=== PATIENT | male | born 1965 | race African-American/Black ===

== ENCOUNTER 2019-08-06 10:24 | Inpatient (IN) ==
[2019-08-06 10:38] VITALS: BMI 26.6
--- NOTE | 2019-08-06 11:09 | DR.EXTPAIN ---
HPI - Time seen Time seen: 11:09 - PCP Primary Care Physician: NFD - Complaint/Symptoms Chief Complaint Doctor Comments: Patient is complaining of RUQ and epigastric pain with diarrhea for the past two days getting progressively worst. States he has a cough and has been running a fever the other day but no fever today. States he do not have a local doctor and he has been taking NyQuil for the cough. He denies tobacco use but states he drinks about two [place] [address] every other day. He denies drug usage. He denies hematuria, claudine, nausea or vomiting. States his pain is 7 of 10. He denies any recent trauma. He denies chest pain or SOB. He denies sore throat or rash. Chief Complaint:: PATIENT STATES HE RECENTLY TRAVELED TO [place] AND IS NOW EXPERIENCING FEVER, DIARRHEA, AND HAS A SLIGHT COUGH. PATIENT STATES HE IS HAVING ABDOMINAL PAIN. Self Treatment fo Chief Complaint: NYQUIL - Nurses notes reviewed Nurses Notes Review: Yes - Source History Provided: Patient - Mode of arrival Mode of Arrival: Ambulatory - Timing Onset of Chief Complaint: 08/04/19 - Context History of: None - Associated signs and symptoms Associated Signs and Symptoms: Abdominal Pain PMH - PMH Past Medical History: No Past Surgical History: Yes Surgical History: Other Past Surgical History Comment: JAW SURGERY 20 YRS AGO - Family History History of Family Medical Conditions: No - Social History Does patient currently use any type of tobacco product: No Have you used tobacco products in the last 12 months: No Type of Tobacco Use: None Does any household member use tobacco: No Alcohol Use: Occasionally Do you use any recreational Drugs:: No Lives With: Family Lives Where: Home - Travel Risk Coronavirus risk:travel/contact w/high risk person: No Has patient experienced Coronavirus symptoms: Yes Coronavirus symptoms experienced: Fever, Coughing - infectious screening Have you traveled outside the country in the last 6 months?: No Isolation: Droplet ROS - Review of Systems Constitutional: No Symptoms Reported. negative: See HPI, Chills, Diaphoresis, Fever, Malaise, Weakness, Irritable, Fatigue, Loss of Appetite, Other Eyes: No Symptoms Reported ENTM: No Symptoms Reported. negative: See HPI, Ear Pain, Ear Discharge, Pulling on Ears, Hearing Loss, Nose Pain, Nose Discharge, Epistaxis, Nose Congestion, Mouth Pain, Mouth Swelling, Loose Teeth, Drooling, Throat Pain, Throat Swelling, Ear Foreign Body, Tooth/Dental Pain Respiratoy: No Symptoms Reported, Non-Productive Cough Cardiovascular: No Symptoms Reported. negative: See HPI, Chest Pain, Edema, Palpitations, Syncope, Cyanosis, Skin Mottling, Other Gastrointestinal/Abdominal: No Symptoms Reported, Abdominal Pain, Diarrhea. negative: See HPI, Constipation, Nausea, Vomiting, Food Intolerance, Other Genitourinary: No Symptoms Reported. negative: See HPI, Discharge, Dysuria, Frequency, Hematuria, Pain, Bleeding, Other Neurological: No Symptoms Reported Musculoskeletal: No Symptoms Reported Integumentary: No Symptoms Reported Hematologic/Lymphatic: No Symptoms Reported. negative: See HPI, Anemia, Blood Clots, Easy Bleeding, Easy Bruising, Swollen Glands, Lymphadenopathy, Other Endocrine: No Symptoms Reported Psychiatric: No Symptoms Reported. negative: See HPI, Anxiety, Depression, Hallucinations, Excessive crying, Suicidal, Other PE - General Limitations: No Limitations General Appearance: Alert, In No Apparent Distress - Head Head Exam: Normal Inspection, Atraumatic, Normocephalic - Eyes Eye exam: Normal Appearance, PERRL, EOMI. negative: Scleral Icterus, Conjunctival Injection, Nystagmus, Miosis, Mydrasis, Periorbital Swelling, Periorbital Tenderness, Other - ENT ENT Exam: Normal Exam, Normal Oropharynx, Normal External Ear Exam, Mucous Membranes Moist, TM's Normal Bilaterally. negative: Mucous Membranes Dry, Other - Neck Neck Exam: Normal Inspection, Full ROM, Trachea Midline. negative: Tenderness, Meningismus, Lymphadenopathy, Thyromegaly, Other - Chest Chest Inspection: Normal Inspection, Symmetric Chest Wall Rise. negative: Tenderness, Rash, Abscess, Other - Respiratory Respiratory Exam: Normal Lung Sounds Bilat, Prolonged Expiratory Phase. negative: Accessory Muscle Use, Chest Wall Tenderness, Respiratory Distress, Stridor, Other Respiratory Exam: Bilateral Clear to Auscultation - Cardiovascular Cardiovascular Exam: Regular Rate, Normal Rhythm, Normal Heart Sounds. negative: Bradycardia, Tachycardia, Irregular Rhythm, Systolic Murmur, Diastolic Murmur, Rubs, Gallop, Clicks, JVD, +S1, +S2, +S3, +S4, Other - Abdominal Exam Abdominal Exam: Normal Inspection, Normal Bowel Sounds, Soft, Tenderness (epigas tric and RUQ tenderness). negative: Distention, Guarding, Rebound, Rigidity, Dimnished Bowel Sounds, Hyperactive Bowel Sounds, Hypoactive Bowel Sounds, Organomegaly, Trauma, Incision, Ascites, Mass, Bruit, Pulsatile Mass, Hernia, Other Abdominal Tenderness: RUQ, Epigastrium, Moderate. negative: RLQ, LUQ, LLQ, Suprapubic, Diffuse, Mild, Severe, Other - Extremities Extremities Exam: Normal Inspection, Full ROM, Normal Capillary Refill. negative: Tenderness, Edema, Joint Swelling, Calf Tenderness, Other - Upper Extremities Shoulder Exam: Normal Inspection, Full ROM. negative: Tenderness, Swelling, Abrasion, Laceration, Ecchymosis, Deformity, Crepitus, Dislocation, Erythema, Tenderness over AC Joint, Other Arm Exam: Normal Inspection, Full ROM. negative: Tenderness, Swelling, Abrasion, Laceration, Ecchymosis, Deformity, Crepitus, Erythema, Other Elbow Exam: Normal Inspection, Full ROM. negative: Tenderness, Swelling, Abrasion, Laceration, Ecchymosis, Deformity, Crepitus, Dislocation, Erythema, Effusion, Pain w/ pronation, Pain w/ Spuination, Tenderness over Radial Head, Other Forearm Exam: Normal Inspection, Full ROM. negative: Tenderness, Swelling, Abrasion, Laceration, Ecchymosis, Deformity, Crepitus, Erythema, Dislocation, Other Hand Exam: Normal Inspection, Full ROM. negative: Tenderness, Swelling, Abrasion, Laceration, Ecchymosis, Skin Avulsion, Deformity, Crepitus, Erythema, Dislocation, Amputation, Nail Avulsion, Subungual Hematoma, Other Neuromotor Exam: Normal Exam. negative: Wrist Extension, Thumb Opposition, Thumb IP Flexion, Thumb Adduction, Fingers 2-5 Abduction, Other Neurosensory Exam: Normal Exam Hand Tendon Exam: Flexor Digitorium Profundus (Location) (normal) Upper Ext. Vascular Exam: Capillary Refill (normal) - Lower Extremities Hip/Pelvis Exam: Normal Inspection, Full ROM. negative: Tenderness, Swelling, Abrasion, Laceration, Ecchymosis, Deformity, Crepitus, Dislocation, Erythema, External Rotation, Internal Rotation, Shortening, Pelvis Stable, Other Upper Leg Exam: Normal Inspection, Full ROM. negative: Tenderness, Swelling, Abrasion, Laceration, Ecchymosis, Deformity, Crepitus, Dislocation, Erythema, Other Knee Exam: Normal Inspection, Full ROM. negative: Tenderness, Swelling, Abrasion, Laceration, Ecchymosis, Deformity, Crepitus, Dislocation, Erythema, Effusion, Anterior Drawer Sign, Posterior Draw Sign, Pain with Valgus, Laxity with Valgus, Pain with Varus, Knee Extension Intact, Other Lower Leg Exam: Normal Inspection, Full ROM. negative: Tenderness, Swelling, Abrasion, Laceration, Deformity, Ecchymosis, Crepitus, Dislocation, Erythema, Palpable Cord, Homans' Sign, Achilles Tendon Intact, Other Ankle Exam: Normal Inspection, Full ROM. negative: Tenderness, Swelling, Abrasion, Laceration, Ecchymosis, Deformity, Crepitus, Dislocation, Erythema, Tenderness over talofibular lig, Anterior Draw Sign, Other Foot/Toe Exam: Normal Inspection, Full ROM. negative: Tenderness, Swelling, Abrasion, Laceration, Ecchymosis, Deformity, Crepitus, Dislocation, Erythema, Amputation, Puncture Wound, Foreign Body, Calcaneal Tenderness, Nail Avulsion, Other Neurovascular/Tendon Exam: Normal Capillary Refill. negative: Pulse Deficit, Motor Deficit, Sensory Deficit, Tendon Deficit, Extremity Cold to Touch, Pallor, Normal 2-point discrimination, Normal Fine/Light Touch, Foot Drop, Peroneal Nerve Deficit, Other Gait Exam: Observed and Normal - Back Back Exam: Normal Inspection, Full ROM. negative: Tenderness, (R) CVA Tenderness, (L) CVA Tenderness, Muscle Spasm, Paraspinal Tenderness, Vertebral Tenderness, Rashes, (R) Sciatic Notch Tenderness, (L) Sciatic Notch Tendern, (R) Straight Leg Raise, (L) Straight Leg Raise, Other - Neurological Neurological Exam: Alert, Oriented X3, CN II-XII Intact, Normal Gait, Reflexes Normal - Psychiatric Psychiatric Exam: Normal Affect - Skin Skin Exam: Warm, Dry, Intact, Normal Color. negative: Rash, Cyanosis, Diaphoresis, Erythema, Pallor, Mottled, Other Type of Lesion: negative: Rash, Abscess, Laceration, Foreign Body, Bite/Sting, Abrasion, Other Distribution: negative: Generalized, Involves Palms/Soles, Head, Face, Neck, Thorax, Chest, Back, Abdomen, Genitals, LUE, LLE, RUE, RLE, Other Description: negative: Size, Tenderness, Erythematous, Swelling, Macular, Papular, Vesicular, Blisters, Cofluent, Bullous, Petechial, Purpuric, Urticarial, Crusting, Discharge, Fluctuant, Indurated, Other - Vital Signs Vitals: Temperature 98.8 F Pulse Rate 91 Respiratory Rate 16 Blood Pressure 122/76 O2 Sat by Pulse Oximetry 94 ROR - Labs Reviewed Laboratory Results Reviewed?: Yes (All labs and x-ray results reviewed and discussed with patient) Result Diagrams: 08/06/19 11:18 08/06/19 11:18 - XRAY XRAY Interpreted by: Radiologist (CXR: Patchy basilar ground-glass opacities better seen on CT. Correlate for COVID-19.) - Labs Reviewed Laboratory: WBC 5.4 X10^3/uL (3.6-10.0) 08/06/19 11:18 RBC 4.30 X10^6/uL (4.7-6.0) L 08/06/19 11:18 Hgb 13.0 g/dL (13.5-18.0) L 08/06/19 11:18 Hct 38.5 % (42.0-54.0) L 08/06/19 11:18 MCV 89.5 fL (80.0-100.0) 08/06/19 11:18 MCH 30.2 pg (27.0-34.0) 08/06/19 11:18 MCHC 33.8 g/dL (33.0-35.0) 08/06/19 11:18 RDW 13.5 % (11.6-16.5) 08/06/19 11:18 Plt Count 223 X10^3/uL (150.0-450.0) 08/06/19 11:18 MPV 8.1 fL (7.4-11.0) 08/06/19 11:18 Neut % (Auto) 79.0 % (42.0-75.0) H 08/06/19 11:18 Lymph % (Auto) 13.7 % (21.0-51.0) L 08/06/19 11:18 [place] % (Auto) 6.8 % (0.0-13.0) 08/06/19 11:18 Eos % (Auto) 0.2 % (0.9-2.9) L 08/06/19 11:18 Baso % (Auto) 0.3 % (0.2-1.0) 08/06/19 11:18 Neut # (Auto) 4.3 x10^3/uL (2.2-4.8) 08/06/19 11:18 Lymph # (Auto) 0.7 X10^3/uL (1.3-2.9) L 08/06/19 11:18 [place] # (Auto) 0.4 x10^3/uL (0.3-0.8) 08/06/19 11:18 Eos # (Auto) 0.0 x10^3/uL (0.0-0.2) 08/06/19 11:18 Baso # (Auto) 0.0 X10^3/uL (0.0-0.1) 08/06/19 11:18 Absolute Nucleated RBC 0.1 /100WBC 08/06/19 11:18 Sodium 137 mmol/L (136-145) 08/06/19 11:18 Corrected Sodium 138 mmol/L (136-145) 08/06/19 11:18 Potassium 4.2 mmol/L (3.5-5.1) 08/06/19 11:18 Chloride 101 mmol/L (98-107) 08/06/19 11:18 Carbon Dioxide 29.8 mmol/L (21-32) 08/06/19 11:18 BUN 11 mg/dL (7-18) 08/06/19 11:18 Creatinine 1.39 mg/dL (0.70-1.30) H 08/06/19 11:18 Est GFR (MDRD) Af Amer > 60 (>60) 08/06/19 11:18 Est GFR (MDRD) Non-Af 57 (>60) L 08/06/19 11:18 Glucose 142 mg/dL (65-99) H 08/06/19 11:18 Calcium 8.3 mg/dL (8.5-10.1) L 08/06/19 11:18 Corrected Calcium TNP 08/06/19 11:18 Total Bilirubin 0.20 mg/dL (0.2-1.0) 08/06/19 11:18 AST 27 Units/L (15-37) 08/06/19 11:18 ALT 32 Units/L (12-78) 08/06/19 11:18 Alkaline Phosphatase 52 Units/L (46-116) 08/06/19 11:18 Total Protein 7.9 g/dL (6.4-8.2) 08/06/19 11:18 Albumin 3.5 g/dL (3.4-5.0) 08/06/19 11:18 Globulin 4.4 g/dL (2.5-4.5) 08/06/19 11:18 Albumin/Globulin Ratio 0.8 Ratio (1.1-2.1) L 08/06/19 11:18 Amylase 51 Units/L (25-115) 08/06/19 11:18 Lipase 151 Units/L (73-393) 08/06/19 11:18 Specimen Type Clean catch urine 08/06/19 11:24 Urine Color Yellow (YELLOW) 08/06/19 11:24 Urine Appearance Clear (CLEAR) 08/06/19 11:24 Urine pH 6.0 (5.0 - 8.0) 08/06/19 11:24 Ur Specific [place] 1.010 (1.000-1.030) 08/06/19 11:24 Urine Protein 1+ (NEGATIVE) 08/06/19 11:24 Urine Glucose (UA) Negative (NEGATIVE) 08/06/19 11:24 Urine Ketones Negative (NEGATIVE) 08/06/19 11:24 Urine Occult Blood Negative (NEGATIVE) 08/06/19 11:24 Urine Nitrite Negative (NEGATIVE) 08/06/19 11:24 Urine Bilirubin Negative (NEGATIVE) 08/06/19 11:24 Urine Urobilinogen Normal (NORMAL) 08/06/19 11:24 Ur Leukocyte Esterase Negative (NEGATIVE) 08/06/19 11:24 Urine RBC None seen /HPF (0-3) 08/06/19 11:24 Urine WBC 3-5 /HPF (0-5) 08/06/19 11:24 Ur Squamous Epith Cells Rare /HPF (NEGATIVE) 08/06/19 11:24 Urine Bacteria Negative /HPF (NEGATIVE) 08/06/19 11:24 Ur Culture Indicated? No/not indicated 08/06/19 11:24 RSV Nasal Swab Negative (NEGATIVE) 08/06/19 11:33 Urine Opiates Screen Negative (NEG=<300) 08/06/19 11:24 Urine Methadone Screen Negative (NEG=<300) 08/06/19 11:24 Ur Barbiturates Screen Negative (NEG=<200) 08/06/19 11:24 Ur Phencyclidine Scrn Negative (NEG=<25) 08/06/19 11:24 Ur Amphetamines Screen Negative (NEG=<1000) 08/06/19 11:24 U Benzodiazepines Scrn Negative (NEG=<200) 08/06/19 11:24 Urine Cocaine Screen Negative (NEG=<300) 08/06/19 11:24 U Marijuana (THC) Screen Negative (NEG=<50) 08/06/19 11:24 Ethyl Alcohol mg/dL 9 mg/dL (0-19.9) 08/06/19 11:18 Influenza Type A (PCR) Negative (NEGATIVE) 08/06/19 11:33 Influenza Type B (PCR) Negative (NEGATIVE) 08/06/19 11:33 - XRAY Xray Findings: CT abdomen and pelvis: No acute findings in the abdomen or pelvis without contrast. Peripheral ground-glass opacities of the lung bases compatible with but not specific for COVID-19. (ERIN STEELE) Opioid - Opioid Risk Tool Age (Alexander box if 16-45): No Total: 0 Total Score Risk Category: Low Risk - Diagnosis Discharge Problem: Pulmonary infiltrates on CXR, Suspected COVID-19 virus infection, Hyperglycemia Abdominal pain Qualifiers: Abdominal location: right upper quadrant Qualified Code(s): R10.11 - Right upper quadrant pain Diarrhea Qualifiers: Diarrhea type: unspecified type Qualified Code(s): R19.7 - Diarrhea, unspecified - Discharge Plan Condition: Stable
[2019-08-06 11:24] LABS: BASOPHILS % (AUTO) 0.3 % (0.2-1.0); EOSINOPHILS % (AUTO) 0.2 % (0.9-2.9); HEMATOCRIT 38.5 % (42.0-54.0); LYMPHOCYTES # (AUTO) 0.7 X10^3/uL (1.3-2.9); LYMPHOCYTES % (AUTO) 13.7 % (21.0-51.0); MEAN CORPUSCULAR HEMOGLOBIN 30.2 pg (27.0-34.0); MEAN CORPUSCULAR HGB CONC 33.8 g/dL (33.0-35.0); MEAN CORPUSCULAR VOLUME 89.5 fL (80.0-100.0); MEAN PLATELET VOLUME 8.1 fL (7.4-11.0); MONOCYTES # (AUTO) 0.4 x10^3/uL (0.3-0.8); MONOCYTES % (AUTO) 6.8 % (0.0-13.0); NEUTROPHILS # (AUTO) 4.3 x10^3/uL (2.2-4.8); PLATELET COUNT 223 X10^3/uL (150.0-450.0); RED CELL DISTRIBUTION WIDTH 13.5 % (11.6-16.5); WHITE BLOOD COUNT 5.4 X10^3/uL (3.6-10.0)
[2019-08-06 11:31] LABS: BILIRUBIN,URINE NEGATIVE (NEGATIVE); BLOOD/HEMOGLOBIN,URINE NEGATIVE (NEGATIVE); GLUCOSE, URINE NEGATIVE (NEGATIVE); KETONES,URINE NEGATIVE (NEGATIVE); LEUKOCYTE ESTERASE ,URINE NEGATIVE (NEGATIVE); NITRITES,URINE NEGATIVE (NEGATIVE); PROTEIN,URINE 1+ (NEGATIVE); UROBILINOGEN,URINE NORMAL (NORMAL)
[2019-08-06 11:36] LABS: ALANINE AMINOTRANSFERASE 32 Units/L (12-78); ALBUMIN 3.5 g/dL (3.4-5.0); ALKALINE PHOSPHATASE 52 Units/L (46-116); AMYLASE 51 Units/L (25-115); ASPARTATE AMINO TRANSFERASE 27 Units/L (15-37); BLOOD ALCOHOL 9 mg/dL (0-19.9); BLOOD UREA NITROGEN 11 mg/dL (7-18); CALCIUM 8.3 mg/dL (8.5-10.1); CARBON DIOXIDE 29.8 mmol/L (21-32); CHLORIDE 101 mmol/L (98-107); COR NA(FOR HYPERGLY) 138 mmol/L (136-145); CREATININE 1.39 mg/dL (0.70-1.30); LIPASE 151 Units/L (73-393); SODIUM 137 mmol/L (136-145); TOTAL PROTEIN 7.9 g/dL (6.4-8.2); eGFR NON BLACK RACES 57 (>60)
[2019-08-06 11:40] LABS: APPEARANCE,URINE CLEAR (CLEAR); COLOR,URINE YELLOW (YELLOW)
[2019-08-06 11:41] LABS: BACTERIA,URINE NEGATIVE /HPF (NEGATIVE); RBC,URINE NONE SEEN /HPF (0-3); SQUAMOUS EPITHELIAL CELL,UR RARE /HPF (NEGATIVE)
[2019-08-06 11:57] LABS: RSV AG DETECTION NEGATIVE (NEGATIVE)
--- NOTE | 2019-08-06 12:43 | RAD ---
HISTORYCOUGHING BEING TESTED FOR COVID VIRUSSTUDYCHEST, [address] same dayFINDINGSCardiomediastinal silhouette within normal limits. Peripheral ground-glass opacities on concurrent body CT are less visible on this exam. No sizable effusion or visible pneumothorax. No consolidation. No acute osseous finding.IMPRESSIONPatchy basilar ground-glass opacities better seen on CT. Correlate for COVID-19.Electronically signed by: Winston Joaquin (Aug 06, 2019 12:42:32)
--- NOTE | 2019-08-06 12:49 | CT ---
HISTORYEPIGASTRIC PAINS AND RUQ PAINS BEING TESTED FOR COVID VIRUSSTUDYABDOMEN/PELVIS W/O CONCOMPARISONNoneTECHNIQUEMultiple axial images of the abdomen and pelvis were obtained from the lung bases to the pubic symphysis without the administration of IV contrast. Dose reduction techniques including Automated Exposure Control (AEC) and adjustment of mA and kV were utilized.FINDINGSIncluded lung bases show peripheral ground-glass opacities typical of COVID-19 but technically nonspecific. Liver, gallbladder, kidneys, adrenal glands, spleen, pancreas have an unremarkable noncontrast appearance. No bowel obstruction. Normal appendix. Colon is largely collapsed limiting its evaluation without obvious inflammation. Urinary bladder unremarkable. No ascites, pneumoperitoneum, or visible lymphadenopathy. No acute osseous finding.IMPRESSIONNo acute finding in the abdomen or pelvis without contrast. Peripheral ground-glass opacities of the lung bases compatible with but not specific for COVID-19.Electronically signed by: Winston Joaquin (Aug 06, 2019 12:47:28)
[2019-08-06] MEDS ORDERED: TUSSIONEX PENNKINETIC SUSP PO PRN (15:15)
[2019-08-06] MEDS ORDERED: PROVENTIL NEB TX 0.083% 2.5MG/ 3ML NEB PRN (17:05)
[2019-08-06] MEDS ORDERED: NS 1/2 1000 ML IV 1,000 ML IV ONE ×2 (17:10→20:16)
[2019-08-06] MEDS: NS 1/2 1000 ML IV 1,000 ML IV SCH (17:16)
[2019-08-06] MEDS: ROBITUSSIN DM PO SCH ×2 (17:16→20:59)
[2019-08-06] MEDS: VIBRAMYCIN 100 MG in NS 100 ML IV + SPIKE MINIBAG* 100 ML IV SCH ×2 (17:17→21:01)
[2019-08-06] MEDS ORDERED: ROCEPHIN VIAL 1 GRAM ONE (18:23)
[2019-08-06] MEDS ORDERED: NS 100 ML IV + SPIKE MINIBAG* 100 ML IV ONE (18:23)
[2019-08-06] MEDS: ROCEPHIN VIAL 1 GRAM 1 G in NS 100 ML IV + SPIKE MINIBAG* 100 ML IV SCH (18:25)
[2019-08-07] MEDS ORDERED: TYLENOL 325 MG TAB PO ONE (01:18)
[2019-08-07] MEDS: TYLENOL 325 MG TAB PO PRN ×2 (01:59→20:35)
[2019-08-07 06:11] LABS: BASOPHILS # (AUTO) 0.1 X10^3/uL (0.0-0.1); BASOPHILS % (AUTO) 0.9 % (0.2-1.0); EOSINOPHILS % (AUTO) 0.1 % (0.9-2.9); HEMATOCRIT 35.5 % (42.0-54.0); HEMOGLOBIN 12.2 g/dL (13.5-18.0); LYMPHOCYTES # (AUTO) 1.5 X10^3/uL (1.3-2.9); LYMPHOCYTES % (AUTO) 26.9 % (21.0-51.0); MEAN CORPUSCULAR HEMOGLOBIN 30.7 pg (27.0-34.0); MEAN CORPUSCULAR HGB CONC 34.4 g/dL (33.0-35.0); MEAN CORPUSCULAR VOLUME 89.4 fL (80.0-100.0); MEAN PLATELET VOLUME 8.7 fL (7.4-11.0); MONOCYTES # (AUTO) 0.4 x10^3/uL (0.3-0.8); MONOCYTES % (AUTO) 6.6 % (0.0-13.0); NEUTROPHILS # (AUTO) 3.7 x10^3/uL (2.2-4.8); NEUTROPHILS % (AUTO) 65.5 % (42.0-75.0); PLATELET COUNT 207 X10^3/uL (150.0-450.0); RED BLOOD COUNT 3.98 X10^6/uL (4.7-6.0); RED CELL DISTRIBUTION WIDTH 13.7 % (11.6-16.5); WHITE BLOOD COUNT 5.6 X10^3/uL (3.6-10.0)
[2019-08-07 06:18] LABS: ALANINE AMINOTRANSFERASE 29 Units/L (12-78); ALBUMIN 3.1 g/dL (3.4-5.0); ALKALINE PHOSPHATASE 45 Units/L (46-116); ASPARTATE AMINO TRANSFERASE 24 Units/L (15-37); BLOOD UREA NITROGEN 10 mg/dL (7-18); CALCIUM 7.9 mg/dL (8.5-10.1); CARBON DIOXIDE 27.9 mmol/L (21-32); CHLORIDE 102 mmol/L (98-107); COR CA(FOR HYPOALB) 8.6 mg/dL (8.5-10.1); CREATININE 1.24 mg/dL (0.70-1.30); SODIUM 137 mmol/L (136-145); TOTAL PROTEIN 7.3 g/dL (6.4-8.2); eGFR NON BLACK RACES > 60 (>60)
[2019-08-07] MEDS: NS 1/2 1000 ML IV 1,000 ML IV SCH ×2 (07:02→20:35)
--- NOTE | 2019-08-07 07:29 | RAD ---
HISTORYpulmonary infiltrates.STUDYCHEST x-ray, 1 VIEWCOMPARISONNoneFINDINGSHeart is normal in size. Mild left lung infiltrates are similar to prior study. Right lung appears clear. No pneumothorax or pleural effusion is seen.IMPRESSIONPersistent mild left lung infiltrates.Electronically signed by: Raffi Justice (Aug 07, 2019 07:27:32)
[2019-08-07] MEDS: ROCEPHIN VIAL 1 GRAM 1 G in NS 100 ML IV + SPIKE MINIBAG* 100 ML IV SCH (08:51)
[2019-08-07] MEDS: VIBRAMYCIN 100 MG in NS 100 ML IV + SPIKE MINIBAG* 100 ML IV SCH ×2 (08:51→20:35)
[2019-08-07] MEDS: ROBITUSSIN DM PO SCH ×5 (08:51→20:35)
--- NOTE | 2019-08-07 10:30 | DR.H&P ---
H&P History & Physical for Day of: H&P Date: 08/07/19 Chief Complaint Chief Complaint: abdominal pain and cough Allergies Allergies Allergy/AdvReac Type Severity Reaction Status Date / Time No Known Drug Allergies Allergy Verified 08/06/19 10:39 History of Present Illness History of Present Illness: Mr. Russell is a 54y/o male who presented with abdominal pain, diarrhea and cough. He recently visited [place] last week and reports his symptoms started 3 days ago with abdominal pain and diarrhea. He also started having cough. He denies fever or chills, denies known sick contact. He has been eating and drinking well, diarrhea has resolved. He is currently on RA, sats > 92%. Denies SOB at rest or with exertion. ED work-up: CTAP: no acute abdominal process, b/l peripheral ground glass opacities noted in the lungs. CXR today: persistent mild left lung infiltrate Flu and RSV negative, COVID-19 pending. Patient's O2 had dropped to 88% in ED and that's why he was admitted. Labs: Cr: 1.39 Plan: Creatinine trending down, continue gentle hydration, monitor resp status. Patient has been on room air since admission. Continue Rocephin/Doxy, follow cu ltures. Monitor Vitals and AM labs. Past Surgical History Surgical History: Other Family History Family Medical History: Diabetes Mellitus Social History Does patient currently use any type of tobacco product: No Have you used tobacco products in the last 12 months: No Type of Tobacco Use: None Does any household member use tobacco: No Alcohol Use: Occasionally Drug Use: None Medications Home Medications: No Known Drug Allergies Allergy (Verified 08/06/19 10:39) CONTINUE taking the following medications NK 08/06/19 [History] Labs Result Diagrams: 08/07/19 05:39 08/07/19 05:39 Labs: Laboratory WBC 5.6 X10^3/uL (3.6-10.0) 08/07/19 05:39 RBC 3.98 X10^6/uL (4.7-6.0) L 08/07/19 05:39 Hgb 12.2 g/dL (13.5-18.0) L 08/07/19 05:39 Hct 35.5 % (42.0-54.0) L 08/07/19 05:39 MCV 89.4 fL (80.0-100.0) 08/07/19 05:39 MCH 30.7 pg (27.0-34.0) 08/07/19 05:39 MCHC 34.4 g/dL (33.0-35.0) 08/07/19 05:39 RDW 13.7 % (11.6-16.5) 08/07/19 05:39 Plt Count 207 X10^3/uL (150.0-450.0) 08/07/19 05:39 MPV 8.7 fL (7.4-11.0) 08/07/19 05:39 Neut % (Auto) 65.5 % (42.0-75.0) 08/07/19 05:39 Lymph % (Auto) 26.9 % (21.0-51.0) 08/07/19 05:39 [place] % (Auto) 6.6 % (0.0-13.0) 08/07/19 05:39 Eos % (Auto) 0.1 % (0.9-2.9) L 08/07/19 05:39 Baso % (Auto) 0.9 % (0.2-1.0) 08/07/19 05:39 Neut # (Auto) 3.7 x10^3/uL (2.2-4.8) 08/07/19 05:39 Lymph # (Auto) 1.5 X10^3/uL (1.3-2.9) 08/07/19 05:39 [place] # (Auto) 0.4 x10^3/uL (0.3-0.8) 08/07/19 05:39 Eos # (Auto) 0.0 x10^3/uL (0.0-0.2) 08/07/19 05:39 Baso # (Auto) 0.1 X10^3/uL (0.0-0.1) 08/07/19 05:39 Absolute Nucleated RBC 0.1 /100WBC 08/07/19 05:39 Sodium 137 mmol/L (136-145) 08/07/19 05:39 Corrected Sodium TNP 08/07/19 05:39 Potassium 4.2 mmol/L (3.5-5.1) 08/07/19 05:39 Chloride 102 mmol/L (98-107) 08/07/19 05:39 Carbon Dioxide 27.9 mmol/L (21-32) 08/07/19 05:39 BUN 10 mg/dL (7-18) 08/07/19 05:39 Creatinine 1.24 mg/dL (0.70-1.30) 08/07/19 05:39 Est GFR (MDRD) Af Amer > 60 (>60) 08/07/19 05:39 Est GFR (MDRD) Non-Af > 60 (>60) 08/07/19 05:39 Glucose 108 mg/dL (65-99) H 08/07/19 05:39 Calcium 7.9 mg/dL (8.5-10.1) L 08/07/19 05:39 Corrected Calcium 8.6 mg/dL (8.5-10.1) 08/07/19 05:39 Total Bilirubin 0.30 mg/dL (0.2-1.0) 08/07/19 05:39 AST 24 Units/L (15-37) 08/07/19 05:39 ALT 29 Units/L (12-78) 08/07/19 05:39 Alkaline Phosphatase 45 Units/L (46-116) L 08/07/19 05:39 C-Reactive Protein 13.50 mg/L (0-3.0) H 08/07/19 05:39 Total Protein 7.3 g/dL (6.4-8.2) 08/07/19 05:39 Albumin 3.1 g/dL (3.4-5.0) L 08/07/19 05:39 Globulin 4.2 g/dL (2.5-4.5) 08/07/19 05:39 Albumin/Globulin Ratio 0.7 Ratio (1.1-2.1) L 08/07/19 05:39 Amylase 51 Units/L (25-115) 08/06/19 11:18 Lipase 151 Units/L (73-393) 08/06/19 11:18 Specimen Type Clean catch urine 08/06/19 11:24 Urine Color Yellow (YELLOW) 08/06/19 11:24 Urine Appearance Clear (CLEAR) 08/06/19 11:24 Urine pH 6.0 (5.0 - 8.0) 08/06/19 11:24 Ur Specific [place] 1.010 (1.000-1.030) 08/06/19 11:24 Urine Protein 1+ (NEGATIVE) 08/06/19 11:24 Urine Glucose (UA) Negative (NEGATIVE) 08/06/19 11:24 Urine Ketones Negative (NEGATIVE) 08/06/19 11:24 Urine Occult Blood Negative (NEGATIVE) 08/06/19 11:24 Urine Nitrite Negative (NEGATIVE) 08/06/19 11:24 Urine Bilirubin Negative (NEGATIVE) 08/06/19 11:24 Urine Urobilinogen Normal (NORMAL) 08/06/19 11:24 Ur Leukocyte Esterase Negative (NEGATIVE) 08/06/19 11:24 Urine RBC None seen /HPF (0-3) 08/06/19 11:24 Urine WBC 3-5 /HPF (0-5) 08/06/19 11:24 Ur Squamous Epith Cells Rare /HPF (NEGATIVE) 08/06/19 11:24 Urine Bacteria Negative /HPF (NEGATIVE) 08/06/19 11:24 Ur Culture Indicated? No/not indicated 08/06/19 11:24 RSV Nasal Swab Negative (NEGATIVE) 08/06/19 11:33 Urine Opiates Screen Negative (NEG=<300) 08/06/19 11:24 Urine Methadone Screen Negative (NEG=<300) 08/06/19 11:24 Ur Barbiturates Screen Negative (NEG=<200) 08/06/19 11:24 Ur Phencyclidine Scrn Negative (NEG=<25) 08/06/19 11:24 Ur Amphetamines Screen Negative (NEG=<1000) 08/06/19 11:24 U Benzodiazepines Scrn Negative (NEG=<200) 08/06/19 11:24 Urine Cocaine Screen Negative (NEG=<300) 08/06/19 11:24 U Marijuana (THC) Screen Negative (NEG=<50) 08/06/19 11:24 Ethyl Alcohol mg/dL 9 mg/dL (0-19.9) 08/06/19 11:18 Influenza Type A (PCR) Negative (NEGATIVE) 08/06/19 11:33 Influenza Type B (PCR) Negative (NEGATIVE) 08/06/19 11:33 Review of Systems Constitutional: Fever, Weakness and Malaise Eyes: No Symptoms Reported ENT: No Symptoms Reported Respiratory: Cough Cardiovascular: No Symptoms Reported Gastrointestinal: Nausea, Abdominal Pain and Diarrhea Musculoskeletal: No Symptoms Reported Skin: No Symptoms Reported Neurological: No Symptoms Reported Physical Exam Vital Signs: Temperature 98.3 F Pulse Rate [Left Radial] 82 Pulse Rate 70 Respiratory Rate 20 Blood Pressure [Right Arm] 108/74 Blood Pressure 122/76 O2 Sat by Pulse Oximetry 95 Oriented: Normal Eyes: Normal Ear: Normal Respiratory: LLL Rhonchi Cardiovascular: Normal Auscultation: Bowel Sounds: Normal Palpation: Normal Tenderness: Normal Skin: Normal Musculoskeletal: Normal Psychiatric: Normal Mood Description: Calm Affect: Normal Speech Pattern: Clear and Appropriate Assessment/Plan (1) Suspected COVID-19 virus infection: Status: Acute (2) Diarrhea: Qualifiers: Diarrhea type: unspecified type Qualified Code(s): R19.7 - Diarrhea, unspecified Status: Acute (3) Pulmonary infiltrates on CXR: Status: Acute (4) MAX (acute kidney injury): Status: Acute Review H&P Reviewed: Yes Patient was examined?: Yes
[2019-08-07] MEDS ORDERED: NS 1/2 1000 ML IV 1,000 ML IV ONE (19:36)
[2019-08-08 06:04] LABS: BASOPHILS % (AUTO) 0.4 % (0.2-1.0); EOSINOPHILS % (AUTO) 0.2 % (0.9-2.9); HEMATOCRIT 36.6 % (42.0-54.0); HEMOGLOBIN 12.6 g/dL (13.5-18.0); LYMPHOCYTES % (AUTO) 17.3 % (21.0-51.0); MEAN CORPUSCULAR HEMOGLOBIN 30.3 pg (27.0-34.0); MEAN CORPUSCULAR HGB CONC 34.5 g/dL (33.0-35.0); MEAN CORPUSCULAR VOLUME 87.9 fL (80.0-100.0); MEAN PLATELET VOLUME 8.8 fL (7.4-11.0); MONOCYTES # (AUTO) 0.4 x10^3/uL (0.3-0.8); MONOCYTES % (AUTO) 6.4 % (0.0-13.0); NEUTROPHILS # (AUTO) 4.3 x10^3/uL (2.2-4.8); NEUTROPHILS % (AUTO) 75.7 % (42.0-75.0); PLATELET COUNT 215 X10^3/uL (150.0-450.0); RED BLOOD COUNT 4.16 X10^6/uL (4.7-6.0); RED CELL DISTRIBUTION WIDTH 13.7 % (11.6-16.5); WHITE BLOOD COUNT 5.6 X10^3/uL (3.6-10.0)
[2019-08-08 06:10] LABS: BLOOD UREA NITROGEN 9 mg/dL (7-18); CALCIUM 8.1 mg/dL (8.5-10.1); CARBON DIOXIDE 28.5 mmol/L (21-32); CHLORIDE 101 mmol/L (98-107); SODIUM 137 mmol/L (136-145); eGFR NON BLACK RACES > 60 (>60)
--- NOTE | 2019-08-08 08:12 | W.DIS.FURT ---
Summary of Discharge Discharge Summary of Date Date of Exam: 08/08/19 Admission Date Date of Admission: 08/06/19 Admission Diagnosis Hospital Course: Mr. Russell is a 54y/o male who presented with abdominal pain, diarrhea and cough. He recently visited [place] last week and reports his symptoms started 3 days ago with abdominal pain and diarrhea. He also started having cough. He denies fever or chills, denies known sick contact. He has been eating and drinking well, diarrhea has resolved. He is currently on RA, sats > 92%. Denies SOB at rest or with exertion. CTAP: no acute abdominal process, b/l peripheral ground glass opacities noted in the lungs. Flu and RSV were negative, COVID is pending. He was put on droplet precautions. He was started on Rocephin and Doxycycline. Repeat CXR showed persistent mild left lung infiltrate. Patient's labs did show slight elevation of creatinine which normalized with gentle hydration. Patient remained on room air. Patient's cultures remained negative. He remained afebrile. Patient was stable for discharge on oral antibiotics. COVID-19 result is still pending. Precautions were discussed with patient, he was advised to self-isolate until we get the results. Patient was advised to return to ED if symptoms worsen including SOB and high fever. Vital Signs: Vital Signs (72 hours) 08/06/19 10:30 08/06/19 16:00 08/06/19 17:02 Temperature 98.8 F 99.4 F 99.4 F Pulse Rate 91 H Pulse Rate [Left Radial] 72 Respiratory Rate 16 22 22 Blood Pressure 122/76 122/76 Blood Pressure [Right Arm] 143/91 O2 Sat by Pulse Oximetry 94 L 95 96 08/06/19 17:06 08/06/19 20:00 08/07/19 00:00 Temperature 99.0 F 101.1 F H Pulse Rate 70 Pulse Rate [Left Radial] 88 82 Respiratory Rate 20 18 Blood Pressure Blood Pressure [Right Arm] 147/72 123/71 O2 Sat by Pulse Oximetry 96 100 95 08/07/19 01:59 08/07/19 02:59 08/07/19 03:00 Temperature 98.3 F Pulse Rate Pulse Rate [Left Radial] 82 Respiratory Rate 18 20 20 Blood Pressure Blood Pressure [Right Arm] 108/74 O2 Sat by Pulse Oximetry 95 08/07/19 08:00 08/07/19 12:00 08/07/19 16:00 Temperature 98.9 F 99.2 F 100.1 F H Pulse Rate Pulse Rate [Left Radial] 77 74 86 Respiratory Rate 20 18 19 Blood Pressure Blood Pressure [Right Arm] 125/74 130/76 141/78 O2 Sat by Pulse Oximetry 95 96 96 08/07/19 20:00 08/07/19 20:35 08/07/19 21:32 Temperature 99.8 F H Pulse Rate 77 Pulse Rate [Left Radial] 87 Respiratory Rate 22 22 Blood Pressure Blood Pressure [Right Arm] 136/78 O2 Sat by Pulse Oximetry 94 L 95 08/07/19 21:35 08/08/19 00:00 08/08/19 04:00 Temperature 99.2 F 99.4 F Pulse Rate Pulse Rate [Left Radial] 75 81 Respiratory Rate 22 18 20 Blood Pressure Blood Pressure [Right Arm] 143/87 131/77 O2 Sat by Pulse Oximetry 94 L 95 Labs: Laboratory Last Values WBC 5.6 X10^3/uL (3.6-10.0) 08/08/19 04:43 RBC 4.16 X10^6/uL (4.7-6.0) L 08/08/19 04:43 Hgb 12.6 g/dL (13.5-18.0) L 08/08/19 04:43 Hct 36.6 % (42.0-54.0) L 08/08/19 04:43 MCV 87.9 fL (80.0-100.0) 08/08/19 04:43 MCH 30.3 pg (27.0-34.0) 08/08/19 04:43 MCHC 34.5 g/dL (33.0-35.0) 08/08/19 04:43 RDW 13.7 % (11.6-16.5) 08/08/19 04:43 Plt Count 215 X10^3/uL (150.0-450.0) 08/08/19 04:43 MPV 8.8 fL (7.4-11.0) 08/08/19 04:43 Neut % (Auto) 75.7 % (42.0-75.0) H 08/08/19 04:43 Lymph % (Auto) 17.3 % (21.0-51.0) L 08/08/19 04:43 [place] % (Auto) 6.4 % (0.0-13.0) 08/08/19 04:43 Eos % (Auto) 0.2 % (0.9-2.9) L 08/08/19 04:43 Baso % (Auto) 0.4 % (0.2-1.0) 08/08/19 04:43 Neut # (Auto) 4.3 x10^3/uL (2.2-4.8) 08/08/19 04:43 Lymph # (Auto) 1.0 X10^3/uL (1.3-2.9) L 08/08/19 04:43 [place] # (Auto) 0.4 x10^3/uL (0.3-0.8) 08/08/19 04:43 Eos # (Auto) 0.0 x10^3/uL (0.0-0.2) 08/08/19 04:43 Baso # (Auto) 0.0 X10^3/uL (0.0-0.1) 08/08/19 04:43 Absolute Nucleated RBC 0.0 /100WBC 08/08/19 04:43 Sodium 137 mmol/L (136-145) 08/08/19 04:43 Corrected Sodium TNP 08/08/19 04:43 Potassium 3.8 mmol/L (3.5-5.1) 08/08/19 04:43 Chloride 101 mmol/L (98-107) 08/08/19 04:43 Carbon Dioxide 28.5 mmol/L (21-32) 08/08/19 04:43 BUN 9 mg/dL (7-18) 08/08/19 04:43 Creatinine 1.20 mg/dL (0.70-1.30) 08/08/19 04:43 Est GFR (MDRD) Af Amer > 60 (>60) 08/08/19 04:43 Est GFR (MDRD) Non-Af > 60 (>60) 08/08/19 04:43 Glucose 100 mg/dL (65-99) H 08/08/19 04:43 Calcium 8.1 mg/dL (8.5-10.1) L 08/08/19 04:43 Corrected Calcium 8.6 mg/dL (8.5-10.1) 08/07/19 05:39 Total Bilirubin 0.30 mg/dL (0.2-1.0) 08/07/19 05:39 AST 24 Units/L (15-37) 08/07/19 05:39 ALT 29 Units/L (12-78) 08/07/19 05:39 Alkaline Phosphatase 45 Units/L (46-116) L 08/07/19 05:39 C-Reactive Protein 13.50 mg/L (0-3.0) H 08/07/19 05:39 Total Protein 7.3 g/dL (6.4-8.2) 08/07/19 05:39 Albumin 3.1 g/dL (3.4-5.0) L 08/07/19 05:39 Globulin 4.2 g/dL (2.5-4.5) 08/07/19 05:39 Albumin/Globulin Ratio 0.7 Ratio (1.1-2.1) L 08/07/19 05:39 Amylase 51 Units/L (25-115) 08/06/19 11:18 Lipase 151 Units/L (73-393) 08/06/19 11:18 Specimen Type Clean catch urine 08/06/19 11:24 Urine Color Yellow (YELLOW) 08/06/19 11:24 Urine Appearance Clear (CLEAR) 08/06/19 11:24 Urine pH 6.0 (5.0 - 8.0) 08/06/19 11:24 Ur Specific [place] 1.010 (1.000-1.030) 08/06/19 11:24 Urine Protein 1+ (NEGATIVE) 08/06/19 11:24 Urine Glucose (UA) Negative (NEGATIVE) 08/06/19 11:24 Urine Ketones Negative (NEGATIVE) 08/06/19 11:24 Urine Occult Blood Negative (NEGATIVE) 08/06/19 11:24 Urine Nitrite Negative (NEGATIVE) 08/06/19 11:24 Urine Bilirubin Negative (NEGATIVE) 08/06/19 11:24 Urine Urobilinogen Normal (NORMAL) 08/06/19 11:24 Ur Leukocyte Esterase Negative (NEGATIVE) 08/06/19 11:24 Urine RBC None seen /HPF (0-3) 08/06/19 11:24 Urine WBC 3-5 /HPF (0-5) 08/06/19 11:24 Ur Squamous Epith Cells Rare /HPF (NEGATIVE) 08/06/19 11:24 Urine Bacteria Negative /HPF (NEGATIVE) 08/06/19 11:24 Ur Culture Indicated? No/not indicated 08/06/19 11:24 RSV Nasal Swab Negative (NEGATIVE) 08/06/19 11:33 Urine Opiates Screen Negative (NEG=<300) 08/06/19 11:24 Urine Methadone Screen Negative (NEG=<300) 08/06/19 11:24 Ur Barbiturates Screen Negative (NEG=<200) 08/06/19 11:24 Ur Phencyclidine Scrn Negative (NEG=<25) 08/06/19 11:24 Ur Amphetamines Screen Negative (NEG=<1000) 08/06/19 11:24 U Benzodiazepines Scrn Negative (NEG=<200) 08/06/19 11:24 Urine Cocaine Screen Negative (NEG=<300) 08/06/19 11:24 U Marijuana (THC) Screen Negative (NEG=<50) 08/06/19 11:24 Ethyl Alcohol mg/dL 9 mg/dL (0-19.9) 08/06/19 11:18 Influenza Type A (PCR) Negative (NEGATIVE) 08/06/19 11:33 Influenza Type B (PCR) Negative (NEGATIVE) 08/06/19 11:33 Reason For Visit: PULMONARY INFILTRATES; SUSPECT COVOID 19; Discharge Date Discharge Date: 08/08/19 Discharge Diagnosis All Active Problems (Updated 08/07/19 @ 10:32 by Jeri Miguel) MAX (acute kidney injury) (Acute) Pulmonary infiltrates on CXR (Acute) Suspected COVID-19 virus infection (Acute) Abdominal pain (Acute) Diarrhea (Acute) Hyperglycemia (Acute) Plan of Treatment: Continue with present treatment and follow up plan. Pt is to keep follow up appointment as instructed and take medications as ordered. Discharge Medications Discharge Medications: No Known Drug Allergies Allergy (Verified 08/06/19 10:39) CONTINUE taking the following medications NK 08/06/19 [History] New Prescriptions cefdinir 300 mg PO BID 5 Days #10 cap 08/08/19 [Rx] doxycycline hyclate 100 mg PO BID 5 Days #10 cap 08/08/19 [Rx] Follow up and Referral Follow Up: 1 Week (PCP) Discharge Disposition Assessment: stable no acute distress noted at time of discharge. Discharge Disposition: Home Discharge Condition: Stable
[2019-08-08] MEDS ORDERED: VENTOLIN or PROAIR HFA IN PRN (08:21)
[2019-08-08] MEDS: ROCEPHIN VIAL 1 GRAM 1 G in NS 100 ML IV + SPIKE MINIBAG* 100 ML IV SCH (08:40)
[2019-08-08] MEDS: ROBITUSSIN DM PO SCH (08:40)
[2019-08-08 08:54] VITALS: BP 128/78
[2019-08-08] MEDS: VIBRAMYCIN 100 MG in NS 100 ML IV + SPIKE MINIBAG* 100 ML IV SCH (09:15)
== END 2019-08-08 10:15 | disposition home or self-care (01) | DRG 682 ==
LOC: ER 10:27 → MED/SURG 15:13
PROVIDERS: ADMIT Internal Medicine; ATTEND Internal Medicine
CPT/HCPCS: 36415; 71010; 71045; 74176; 80048; 80053; 80307; 80320; 81001; 82150; 83690; 85025; 86140; 87040; 87420; 87502; 94760; 96365; 99284; 99285; A4222; J0696; J3490; J7050